=== PATIENT | male | born 1970 | race Caucasian/White ===

== ENCOUNTER 2016-08-29 02:05 | Emergency (ER) | payer OTHER ==
[~2016-08-29] VITALS: Ht 177.8 cm; Wt 120.2 kg
[~2016-08-29 02:05] MED LIST: CLEOCIN HCL300 MG PO; HYZAAR 100-251 EACH PO; TRAMADOL50 MG PO; ZOFRAN 4 MG TABL4 MG PO
--- NOTE | 2016-08-29 02:17 | ED GENERAL ADULT ---
History of Present Illness General Chief Complaint: Abdominal Pain/Flank Pain Stated Complaint: LEFT SIDE ABD PAIN Source: patient Exam Limitations: no limitations Triage Nurses Notes Reviewed? yes Onset: Last week Duration: day(s): Timing: multiple episodes today Severity: severe, 7-8/10 Severity Numbers: 7 Modifying Factors: Improves With: rest. Worsens With: movement. Associated Symptoms: NO ASSOCIATED SYMPTOMS HPI: Patient is a 46-year-old male who came to the ED due to several days of left upper quadrant and left lower quadrant abdominal pain that started at on and Monday last week, pain has been constant and severe 7-8 out of 10, progressively worsened, sometimes sharp and sometimes dull in nature, not associated with changes in the stool, nausea vomiting, fever or chills, or loss of appetite. Patient denies dysuria or changes in the urine. Pain hasn't been relieved by Aleve, aspirin, Pepto-Bismol, and has been worsened with changing position. Patient has a history of diverticulitis in the past associated with fever and nausea vomiting. (GUILLE COATES,[facility]) Vital Signs & Intake/Output Vital Signs & Intake/Output Vital Signs Date Time Temp Pulse Resp B/P Pulse O2 O2 Flow FiO2 Ox Delivery Rate 08/29 0419 88 20 122/78 100 08/29 0217 98.1 76 18 127/79 98 Room Air Allergies Coded Allergies: bee pollen (Severe, ANAPHYLAXIS 08/29/16) Reconcile Medications Ciprofloxacin HCl (Cipro) 500 MG TABLET 1 TAB PO BID DIVERTICULITIS LOSARTAN/HYDROCHLOROTHIAZIDE (Hyzaar 100-25 Tablet) 1 EACH TABLET 1 TAB PO DAILY BP (Reported) Metronidazole (Flagyl) 500 MG TABLET 1 TAB PO 4 TIMES/DAY DIVERTICULITIS Oxycodone HCl/Acetaminophen (Percocet 5-325 MG Tablet) 5 MG-325 MG TABLET 1 TAB PO 4XDP PRN PAIN TEN...[id number] (ZHANE COATES,BLAINE Bran) Past History Travel History Traveled to [place] past 21 day No Medical History Any Pertinent Medical History? see below for history Neurological: NONE EENT: NONE Cardiovascular: hypertension Respiratory: NONE Gastrointestinal: diverticulitis Hepatic: NONE Renal: NONE Musculoskeletal: NONE Psychiatric: NONE Endocrine: NONE Blood Disorders: NONE Cancer(s): NONE Surgical History Surgical History: carpal tunnel surgery, shoulder surgery Psychosocial History What is your primary language Danish Tobacco Use: Current Not Daily ETOH Use: occasional use Illicit Drug Use: denies illicit drug use Family History Family History, If Any: FATHER FH: diabetes mellitus Hx Contributory? No (CHACE HAN MD) Review of Systems Review of Systems Constitutional: Denies: chills, fever, malaise, weakness. EENTM: Denies: visual changes, hearing changes. Respiratory: Denies: cough, short of breath. Cardiovascular: Denies: chest pain, edema, palpitations. GI: Reports: abdominal pain, bloating. Denies: diarrhea, distention, nausea, changes in stool, vomiting. Genitourinary: Denies: discharge, dysuria, frequency, hematuria, hesitation, nocturia. Musculoskeletal: Denies: back pain, joint pain, joint swelling. Skin: Denies: change in skin color, rash. Neurological/Psychological: Denies: headache, weakness. Hematologic/Endocrine: Denies: bruising, bleeding. (CHACE HAN MD) Review of Systems Constitutional: Reports: no symptoms. EENTM: Reports: no symptoms. Respiratory: Reports: no symptoms. Cardiovascular: Reports: no symptoms. GI: Reports: no symptoms. Genitourinary: Reports: no symptoms. Musculoskeletal: Reports: no symptoms. Skin: Reports: no symptoms. Neurological/Psychological: Reports: no symptoms. Hematologic/Endocrine: Reports: no symptoms. Immunologic/Allergic: Reports: no symptoms. All Other Systems: Reviewed and Negative (ZHANE COATES,BLAINE Bran) Physical Exam Physical Exam General Appearance: well developed/nourished, no apparent distress, alert, awake , mild distress Head: atraumatic, normal appearance Eyes: Bilateral: normal appearance, PERRL, EOMI. Ears, Nose, Throat: normal pharynx, normal ENT inspection, hearing grossly normal Neck: normal inspection, supple, full range of motion Respiratory: normal breath sounds, chest non-tender, no respiratory distress Cardiovascular: regular rate/rhythm Peripheral Pulses: 2+ radial (R), 2+ radial (L) Gastrointestinal: tenderness on the hypogastric, left lower quadrant, and to a lesser extent in the left upper quadrant, epigastric right upper quadrant areas. rebound tenderness present. Back: normal inspection, normal range of motion, no vertebral tenderness Extremities: normal inspection, normal capillary refill, normal range of motion, no edema Neurologic/Psych: no motor/sensory deficits, awake, alert, oriented x 3, normal gait Skin: intact Core Measures ACS in differential dx? No CVA/TIA Diagnosis: No Severe Sepsis Present: No Septic Shock Present: No (CHACE HAN MD) Progress Differential Diagnoses I considered the following diagnoses in my evaluation of the patient: [Acute diverticulitis, gastritis, pancreatitis, alcohol induced hepatitis] Initial ED EKG: none (CHACE HAN MD) Differential Diagnoses I considered the following diagnoses in my evaluation of the patient: as above Plan of Care: Orders Procedure Date/time Status URINALYSIS 08/29 207 Complete LIPASE 08/29 207 Complete HEPATIC FUNCTION PANEL 08/29 207 Complete CBC WITHOUT DIFFERENTIAL 08/29 207 Complete BASIC METABOLIC PANEL 08/29 207 Complete AMYLASE 08/29 207 Complete Laboratory Tests 08/29/16 0235: Anion Gap 8, Estimated GFR > 60, BUN/Creatinine Ratio 18.8, Glucose 120 H, Calcium 9.2, Total Bilirubin 0.8, Direct Bilirubin 0.5 H, AST 24, ALT 49, Alkaline Phosphatase 49, Total Protein 6.8, Albumin 4.1, Amylase 35, Lipase 63, CBC w Diff NO MAN DIFF REQ, RBC 4.67 L, MCV 92.1, MCH 31.3 H, RDW 12.5, MPV 11.4 H, Gran % 70.9, Lymphocytes % 19.0 L, Monocytes % 8.5, Eosinophils % 1.0, Basophils % 0.6, Absolute Granulocytes 7.4 H, Absolute Lymphocytes 2.0, Absolute Monocytes 0.9 H, Absolute Eosinophils 0.1, Absolute Basophils 0.1, PUBS MCHC 34.0 08/29/16 0213: Urine Color YEL, Urine Clarity CLEAR, Urine pH 6.0, Ur Specific [place] >= 1.030 , Urine Protein NEG, Urine Ketones NEG, Urine Nitrite NEG, Urine Bilirubin NEG, Urine Urobilinogen 0.2, Ur Leukocyte Esterase NEG, Ur Microscopic SEDIMENT EXAMINED, Urine RBC 1-3, Urine WBC RARE, Urine Hemoglobin TRACE-INTACT H, Urine Glucose NEG Diagnostic Imaging: Viewed by Me: CT Scan. Discussed w/RAD: CT Scan. Radiology Impression: abd/pelvic ct... sigmoid diverticulitis Comments: PATIENT: PADMAJA BOLAÑOS PRESENT AGE: 46 PATIENT ACCOUNT NO: [id number] : 72 LOCATION: [facility] ORDERING PHYSICIAN: BLAINE PHELAN MD SERVICE DATE: 08/29/16 EXAM TYPE: CAT - CT ABD & PELVIS W/O IV CONTRAS EXAMINATION: CT ABDOMEN AND PELVIS WITHOUT CONTRAST CLINICAL INFORMATION: Abdominal pain. Left lower quadrant pain. COMPARISON: 08/05/2014. TECHNIQUE: Contiguous axial thin section helical images of the abdomen and pelvis were performed without oral or IV contrast. The data set was reformatted in the coronal and sagittal planes and reviewed on an independent workstation. DLP: 1283 mGy-cm. FINDINGS: The visualized lung bases are clear. The visualized portions of the heart are unremarkable. The liver is of normal size and attenuation without focal lesions nor intrahepatic biliary ductal dilation. A normal gallbladder is identified. There is no wall thickening or discernible pericholecystic fluid. The spleen, pancreas, adrenal glands are unremarkable. Both kidneys are of normal size and attenuation without hydronephrosis or nephrolithiasis. There is no abdominal free fluid. There is neither mesenteric nor retroperitoneal lymphadenopathy. There is descending colonic and sigmoid diverticulosis with adjacent fat stranding and wall thickening without drainable fluid collections. There is no pelvic free fluid. The urinary bladder is unremarkable. There is neither pelvic nor inguinal lymphadenopathy. Bone windows: Neither sclerotic nor lytic bone lesions are identified. There are bilateral L4 pars defects with grade 1 anterolisthesis of L4 in relation to L5. There is moderate disc height loss at L4/L5. IMPRESSION: Sigmoid diverticulosis and diverticulitis without drainable fluid collections. DICTATED BY: ARTHUR QUILES MD DATE/TIME DICTATED:08/29/16343 MANAGER CLINICAL PHARMACY:DONG DATE/TIME TRANSCRIBED:08/29/16343 CONFIDENTIAL, DO NOT COPY WITHOUT APPROPRIATE AUTHORIZATION. <Electronically signed in Other Vendor System> SIGNED BY: ARTHUR QUILES MD 08/29/16 0350 (ZHANE COATES,BLAINE Bran) Departure Departure Condition: Stable Referrals: MIRIAM ROBLES MD (PCP/Family) Departure Forms: Customer Survey General Discharge Information (GUILLE COATES,[facility]) Departure Disposition: HOME OR SELF CARE Clinical Impression Primary Impression: Diverticulitis Secondary Impressions: Abdominal pain Prescriptions: Current Visit Scripts Ciprofloxacin HCl (Cipro) 1 TAB PO BID #20 TAB Metronidazole (Flagyl) 1 TAB PO 4 TIMES/DAY #40 TAB Oxycodone HCl/Acetaminophen (Percocet 5-325 MG Tablet) 1 TAB PO 4XDP PRN PAIN #10 TAB TEN...[id number] Comments 08/29/16, 4:10am.... pt with stable labs, mild sigmoid diverticulitis... pt safe for discharge... pt given ceftriaxone and oral flagyl... home with cipro/flagyl and referred to GI. Resident Co-Sign Statement Statement: ED Attending supervision documentation- [x] I saw and evaluated the patient. I have also reviewed all the pertinent lab results and diagnostic results. I agree with the findings and the plan of care as documented in the Resident's documentation. mild tenderness at left lower quadrant.... labs/ct scan reviewed... discussed at length with patient. [] I have reviewed the ED Record and agree with the Resident's documentation. [] Additions or exceptions (if any) to the Resident's note and plan are summarized below: [] (ZHANE COATES,BLAINE Bran) Critical Care Note Critical Care Note Critical Care Time: non-applicable (ZHANE COATES,BLAINE Bran)
[2016-08-29 02:50] LABS: ABSOLUTE BASOPHIL COUNT 0.1 /CUMM (0.0-0.2); ABSOLUTE EOSINOPHIL COUNT 0.1 /CUMM (0.0-0.7); ABSOLUTE GRANULOCYTE CT 7.4 /CUMM (1.4-6.5); ABSOLUTE MONOCYTE COUNT 0.9 /CUMM (0.10-0.60); BASOPHIL % 0.6 % (0.0-2.0); GRANULOCYTE % 70.9 % (42.2-75.2); MEAN CORPUSCULAR HGB 31.3 PG (27.0-31.0); MEAN CORPUSCULAR VOLUME 92.1 FL (80.0-94.0); MEAN PLATELET VOLUME 11.4 FL (7.4-10.4); PLATELET COUNT 175 /CUMM (130-400); RBC DISTRIBUTION WIDTH 12.5 % (11.5-14.5); RED BLOOD CELL CT 4.67 /CUMM (4.70-6.10); WHITE BLOOD CELL COUNT 10.5 /CUMM (4.8-10.8)
--- NOTE | 2016-08-29 03:50 | CT SCAN REPORT ---
EXAMINATION: CT ABDOMEN AND PELVIS WITHOUT CONTRAST CLINICAL INFORMATION: Abdominal pain. Left lower quadrant pain. COMPARISON: 08/05/2014. TECHNIQUE: Contiguous axial thin section helical images of the abdomen and pelvis were performed without oral or IV contrast. The data set was reformatted in the coronal and sagittal planes and reviewed on an independent workstation. DLP: 1283 mGy-cm. FINDINGS: The visualized lung bases are clear. The visualized portions of the heart are unremarkable. The liver is of normal size and attenuation without focal lesions nor intrahepatic biliary ductal dilation. A normal gallbladder is identified. There is no wall thickening or discernible pericholecystic fluid. The spleen, pancreas, adrenal glands are unremarkable. Both kidneys are of normal size and attenuation without hydronephrosis or nephrolithiasis. There is no abdominal free fluid. There is neither mesenteric nor retroperitoneal lymphadenopathy. There is descending colonic and sigmoid diverticulosis with adjacent fat stranding and wall thickening without drainable fluid collections. There is no pelvic free fluid. The urinary bladder is unremarkable. There is neither pelvic nor inguinal lymphadenopathy. Bone windows: Neither sclerotic nor lytic bone lesions are identified. There are bilateral L4 pars defects with grade 1 anterolisthesis of L4 in relation to L5. There is moderate disc height loss at L4/L5. IMPRESSION: Sigmoid diverticulosis and diverticulitis without drainable fluid collections.
[2016-08-29] MEDS ORDERED: CIPRO500 M1 PO (04:02)
[2016-08-29] MEDS ORDERED: FLAGYL500 MG PO (04:02)
[2016-08-29] MEDS ORDERED: PERCOCET 5-3251 EACH PO (04:02)
[2016-08-29 04:19] VITALS: BP 122/78
== END 2016-08-29 04:19 ==
LOC: ERH 02:05
PROVIDERS: Pediatrics
DX: K57.92 Diverticulitis of intestine, part unspecified, without perforation or abscess without bleeding (principal)
CPT/HCPCS: 74176; 81001; 96374; 96375; J0696; J1885

== ENCOUNTER 2016-09-22 12:00 | Emergency (ER) | payer OTHER ==
[~2016-09-22] VITALS: Ht 177.8 cm; Wt 117.9 kg
[~2016-09-22 12:00] MED LIST changes: +CIPRO500 M1 PO; +FLAGYL500 MG PO; +PERCOCET 5-3251 EACH PO
[2016-09-22 12:22] LABS: ABSOLUTE BASOPHIL COUNT 0.1 /CUMM (0.0-0.2); ABSOLUTE EOSINOPHIL COUNT 0.1 /CUMM (0.0-0.7); ABSOLUTE GRANULOCYTE CT 8.8 /CUMM (1.4-6.5); ABSOLUTE LYMPH COUNT 1.9 /CUMM (1.2-3.4); ABSOLUTE MONOCYTE COUNT 1.1 /CUMM (0.10-0.60); BASOPHIL % 0.4 % (0.0-2.0); EOSINOPHIL % 0.6 % (0-5); GRANULOCYTE % 74.1 % (42.2-75.2); HEMATOCRIT 42.7 % (42-52); MEAN CORPUSCULAR HGB 31.5 PG (27.0-31.0); MEAN CORPUSCULAR HGB CONC 34.3 G/DL (33.0-37.0); MEAN CORPUSCULAR VOLUME 91.8 FL (80.0-94.0); PLATELET COUNT 177 /CUMM (130-400); RED BLOOD CELL CT 4.65 /CUMM (4.70-6.10); WHITE BLOOD CELL COUNT 11.9 /CUMM (4.8-10.8)
--- NOTE | 2016-09-22 12:31 | ED GI/GU/ABDOMINAL COMPLAINT ---
History of Present Illness General Chief Complaint: Abdominal Pain/Flank Pain Stated Complaint: ABD PAIN DIVERTICULITIS Source: patient, old records Exam Limitations: no limitations Allergies Coded Allergies: bee pollen (Severe, ANAPHYLAXIS 08/29/16) Reconcile Medications Ciprofloxacin HCl (Cipro) 500 MG TABLET 1 TAB PO BID infection Losartan/Hydrochlorothiazide (Hyzaar 100-25 Tablet) 100 MG-25 MG TABLET 1 TAB PO DAILY HEART (Reported) Ondansetron (Zofran Odt) 4 MG TAB.RAPDIS 1 TAB SL TID PRN nausea Oxycodone HCl/Acetaminophen (Percocet 5-325 MG Tablet) 5 MG-325 MG TABLET 1 TAB PO Q6H PRN PAIN Triage Note: PT STATES THAT HE HAS HISTORY OF DIVERTICULITIS AND WAS TREATED WITH CIPRO AND FLAGYL, STATES THAT PAIN HAS ARETURNED SINCE MONDAY Triage Nurses Notes Reviewed? yes HPI: Patient is a 46-year-old male presents complaining of severe left lower quadrant abdominal pain. Patient reports that pain initially began approximately 4 weeks ago. Patient was seen in the emergency department and diagnosed with diverticulitis. Patient was placed on Cipro and Flagyl. Patient took the antibiotics for 10 days with moderate improvement but symptoms did not resolve completely. Yesterday pain significantly worsened. Patient called his primary doctor, Dr. Goetz, and Dr. Goetz called in a prescription for Flagyl which patient has taken since yesterday with no improvement. Pain is severe, worsens with palpation. Positive associated nausea. Patient denies fevers, vomiting, diarrhea, hematochezia. (ALISHA AGUIRRE) Vital Signs & Intake/Output Vital Signs & Intake/Output Vital Signs Date Time Temp Pulse Resp B/P Pulse O2 O2 Flow FiO2 Ox Delivery Rate 09/22 1359 97.9 82 18 137/69 97 Room Air 09/22 1302 98 Room Air 09/22 1203 98.8 94 18 147/87 98 Room Air Past History Travel History Traveled to [place] past 21 day No Medical History Any Pertinent Medical History? see below for history Neurological: NONE EENT: NONE Cardiovascular: hypertension Respiratory: NONE Gastrointestinal: diverticulitis Hepatic: NONE Renal: NONE Musculoskeletal: NONE Psychiatric: NONE Endocrine: NONE Blood Disorders: NONE Cancer(s): NONE Surgical History Surgical History: carpal tunnel surgery, shoulder surgery Psychosocial History What is your primary language Tajik Tobacco Use: Never used ETOH Use: denies use Illicit Drug Use: denies illicit drug use Family History Family History, If Any: FATHER FH: diabetes mellitus Hx Contributory? No (ALISHA AGUIRRE) Review of Systems Review of Systems Constitutional: Denies: chills, fever. EENTM: Reports: no symptoms. Respiratory: Denies: cough, short of breath. Cardiovascular: Denies: chest pain. GI: Reports: see HPI. Genitourinary: Reports: no symptoms. Musculoskeletal: Reports: no symptoms. Skin: Reports: no symptoms. Neurological/Psychological: Reports: no symptoms. Hematologic/Endocrine: Reports: no symptoms. Immunologic/Allergic: Reports: no symptoms. (ALISHA AGUIRRE) Physical Exam Physical Exam General Appearance: well developed/nourished, alert, awake Head: atraumatic, normal appearance Eyes: Bilateral: normal appearance. Ears, Nose, Throat, Mouth: hearing grossly normal, moist mucous membrane Neck: normal inspection, supple, full range of motion Respiratory: normal breath sounds, no respiratory distress, lungs clear Cardiovascular: regular rate/rhythm Gastrointestinal: normal bowel sounds, soft, LLQ tenderness with voluntary guarding. Back: normal inspection, normal range of motion Extremities: normal range of motion Neurologic/Psych: no motor/sensory deficits, awake, alert, oriented x 3, normal gait, normal mood/affect Skin: intact, normal color, warm/dry Core Measures ACS in differential dx? No Severe Sepsis Present: No Septic Shock Present: No (ALISHA AGUIRRE) Progress Differential Diagnosis: diverticulitis, intra-abdominal abscess, bowel perforation, sepsis Diagnostic Imaging: Viewed by Me: CT Scan. Discussed w/RAD: CT Scan. Radiology Impression: PATIENT: PADMAJA BOLAÑOS PRESENT AGE: 46 PATIENT ACCOUNT NO: [id number] : 72 LOCATION: [facility] ORDERING PHYSICIAN: ALISHA VICKERS SERVICE DATE: 09/22/16 EXAM TYPE: CAT - CT ABD & PELVIS W IV CONTRAST EXAMINATION: CT ABDOMEN AND PELVIS WITH CONTRAST CLINICAL INFORMATION: Left lower quadrant abdominal tenderness and guarding. Evaluate for diverticulitis, abscess and/or perforation. COMPARISON: CT of abdomen pelvis from 08/29/2016. TECHNIQUE: Multidetector volumetric imaging was performed of the abdomen and pelvis after the IV administration of 95 mL of Optiray 320 intravenous contrast. Sagittal and coronal reformatted images were obtained on the technologist's workstation. DLP: 1115 mGy-cm FINDINGS: LUNG BASES: The visualized lung bases are unremarkable. LIVER, GALLBLADDER, AND BILIARY TREE: Liver has normal size and contour. 1.8 cm hemangioma in the right hepatic lobe is stable in size compared to 08/09/2007 ( image 16, series 2). No suspicious hepatic lesion or intrahepatic bile duct dilatation. Gallbladder is physiologically distended and without evidence of cholelithiasis or pericholecystic inflammatory change. PANCREAS: Unremarkable. SPLEEN: No focal splenic lesion. Spleen measures 13.3 cm craniocaudal, not appreciably changed in size compared to 08/09/2007. Splenic vein is patent. ADRENAL GLANDS: Unremarkable. KIDNEYS AND URETERS: Kidneys have normal size, cortical thickness and attenuation. No nephrolithiasis, hydronephrosis or perinephric edema. The ureters are unremarkable. BLADDER: Unremarkable. GASTROINTESTINAL TRACT: Stomach is normal. Bowel loops are normal in caliber. Appendix is normal. Again noted are multiple diverticula of the right and left colon. There is persistent fat stranding around a diverticulum of the distal descending colon. This remains similar in appearance compared to 08/29/2016. No evidence of bowel perforation or abscess formation. ABDOMINAL WALL: No acute findings. LYMPH NODES: No pathologic sized lymph nodes within the abdomen or pelvis. VASCULAR: Mild atherosclerotic calcification of the abdominal aorta without aneurysm. PELVIC VISCERA: Prostate gland and seminal vesicles are unremarkable. No pelvic free fluid. OSSEOUS STRUCTURES: L4-L5 disc degeneration as manifest by moderate disc space narrowing, vacuum disc phenomenon, disc bulge and discogenic vertebral sclerosis. There are bilateral pars interarticularis defects of L4 with 0.6 cm of grade 1 anterolisthesis of L4 on L5. IMPRESSION: 1. Persistent diverticulitis of the distal descending colon. No interval development of bowel perforation or abscess. 2. Cavernous hemangioma (i.e., venous formation) within the right lobe of the liver is stable in size compared to 08/09/2007. DICTATED BY: TJ SPEARS MD DATE/TIME DICTATED:09/22/161312 UNDERWATER PHOTOGRAPHER:DONG DATE/TIME TRANSCRIBED:09/22/161312 CONFIDENTIAL, DO NOT COPY WITHOUT APPROPRIATE AUTHORIZATION. <Electronically signed in Other Vendor System> SIGNED BY: TJ SPEARS MD 09/22/16 1330 Initial ED EKG: none (ALISHA AGUIRRE) Plan of Care: Orders Procedure Date/time Status COMPREHENSIVE METABOLIC PANEL 09/22 1205 Complete CBC WITHOUT DIFFERENTIAL 09/22 1205 Complete Laboratory Tests 09/22/16 1207: Anion Gap 12, Estimated GFR > 60, BUN/Creatinine Ratio 18.8, Glucose 93, Calcium 9.2, Total Bilirubin 1.1, AST 27, ALT 51, Alkaline Phosphatase 50, Total Protein 7.1, Albumin 4.3, Globulin 2.8, Albumin/Globulin Ratio 1.5, CBC w Diff NO MAN DIFF REQ, RBC 4.65 L, MCV 91.8, MCH 31.5 H, RDW 13.0, MPV 11.0 H, Gran % 74.1 , Lymphocytes % 16.0 L, Monocytes % 8.9, Eosinophils % 0.6, Basophils % 0.4, Absolute Granulocytes 8.8 H, Absolute Lymphocytes 1.9, Absolute Monocytes 1.1 H, Absolute Eosinophils 0.1, Absolute Basophils 0.1, PUBS MCHC 34.3 09/22/2016 1:52:13 PM: Results discussed with patient. Patient reports improvement in nausea and pain after morphine and Zofran. Patient resting comfortably. Patient's primary doctor paged to discuss disposition. Discussed with Dr. Madsen. 09/22/2016 2:27:49 PM: Discussed with Dr. Goetz: He provided instructions for Flagyl to the patient yesterday, recommends providing prescription for pain control, antinausea medicine, Cipro for 14 day course and have follow-up in the office. (ALISHA AGUIRRE) Departure Departure Time of Disposition: 1418 Disposition: HOME OR SELF CARE Condition: Stable Clinical Impression Primary Impression: Acute diverticulitis Referrals: SARA COATES,MELLISSA GOETZ MD,MIRIAM (PCP/Family) Additional Instructions: Follow-up with your primary doctor either tomorrow or Monday for recheck and further evaluation. Call Dr. Barrera to try to get an earlier appointment than mid-September for further evaluation. Clear liquid diet for the next 24-48 hours then slowly advance your diet as tolerated. Return to the emergency department if you develop a fever of 100.4 or higher, vomiting, pain increasing, or worsening of symptoms. Departure Forms: Customer Survey General Discharge Information Prescriptions: Current Visit Scripts Ondansetron (Zofran Odt) 1 TAB SL TID PRN nausea #10 TAB Oxycodone HCl/Acetaminophen (Percocet 5-325 MG Tablet) 1 TAB PO Q6H PRN PAIN #10 TAB Ciprofloxacin HCl (Cipro) 1 TAB PO BID #28 TAB (ALISHA AGUIRRE) PA/SHIPPING AND RECEIVING Co-Sign Statement Statement: ED Attending supervision documentation- [] I saw and evaluated the patient. I have also reviewed all the pertinent lab results and diagnostic results. I agree with the findings and the plan of care as documented in the PA's/SHIPPING AND RECEIVING's documentation. [x] I have reviewed the ED Record and agree with the PA's/SHIPPING AND RECEIVING's documentation. [] Additions or exceptions (if any) to the PAs/SHIPPING AND RECEIVING's note and plan are summarized below: [] (MICHAELA COATES,CATHLEEN Andrade)
--- NOTE | 2016-09-22 13:30 | CT SCAN REPORT ---
EXAMINATION: CT ABDOMEN AND PELVIS WITH CONTRAST CLINICAL INFORMATION: Left lower quadrant abdominal tenderness and guarding. Evaluate for diverticulitis, abscess and/or perforation. COMPARISON: CT of abdomen pelvis from 08/29/2016. TECHNIQUE: Multidetector volumetric imaging was performed of the abdomen and pelvis after the IV administration of 95 mL of Optiray 320 intravenous contrast. Sagittal and coronal reformatted images were obtained on the technologist's workstation. DLP: 1115 mGy-cm FINDINGS: LUNG BASES: The visualized lung bases are unremarkable. LIVER, GALLBLADDER, AND BILIARY TREE: Liver has normal size and contour. 1.8 cm hemangioma in the right hepatic lobe is stable in size compared to 08/09/2007 (image 16, series 2). No suspicious hepatic lesion or intrahepatic bile duct dilatation. Gallbladder is physiologically distended and without evidence of cholelithiasis or pericholecystic inflammatory change. PANCREAS: Unremarkable. SPLEEN: No focal splenic lesion. Spleen measures 13.3 cm craniocaudal, not appreciably changed in size compared to 08/09/2007. Splenic vein is patent. ADRENAL GLANDS: Unremarkable. KIDNEYS AND URETERS: Kidneys have normal size, cortical thickness and attenuation. No nephrolithiasis, hydronephrosis or perinephric edema. The ureters are unremarkable. BLADDER: Unremarkable. GASTROINTESTINAL TRACT: Stomach is normal. Bowel loops are normal in caliber. Appendix is normal. Again noted are multiple diverticula of the right and left colon. There is persistent fat stranding around a diverticulum of the distal descending colon. This remains similar in appearance compared to 08/29/2016. No evidence of bowel perforation or abscess formation. ABDOMINAL WALL: No acute findings. LYMPH NODES: No pathologic sized lymph nodes within the abdomen or pelvis. VASCULAR: Mild atherosclerotic calcification of the abdominal aorta without aneurysm. PELVIC VISCERA: Prostate gland and seminal vesicles are unremarkable. No pelvic free fluid. OSSEOUS STRUCTURES: L4-L5 disc degeneration as manifest by moderate disc space narrowing, vacuum disc phenomenon, disc bulge and discogenic vertebral sclerosis. There are bilateral pars interarticularis defects of L4 with 0.6 cm of grade 1 anterolisthesis of L4 on L5. IMPRESSION: 1. Persistent diverticulitis of the distal descending colon. No interval development of bowel perforation or abscess. 2. Cavernous hemangioma (i.e., venous formation) within the right lobe of the liver is stable in size compared to 08/09/2007.
[2016-09-22 13:59] VITALS: BP 137/69
[2016-09-22] MEDS ORDERED: CIPRO500 M1 PO (14:27)
[2016-09-22] MEDS ORDERED: PERCOCET 5-3251 EACH PO (14:27)
[2016-09-22] MEDS ORDERED: ZOFRAN ODT4 M1 SL (14:27)
== END 2016-09-22 14:41 ==
LOC: ERH 12:00
PROVIDERS: Emergency Medicine
DX: K57.92 Diverticulitis of intestine, part unspecified, without perforation or abscess without bleeding (principal)
CPT/HCPCS: 74177; 96374; 96375; J2405

== ENCOUNTER 2016-09-30 03:54 | Emergency (ER) | payer OTHER ==
[~2016-09-30 03:54] MED LIST changes: +ZOFRAN ODT4 M1 SL
--- NOTE | 2016-09-30 04:39 | ED GI/GU/ABDOMINAL COMPLAINT ---
History of Present Illness General Chief Complaint: Abdominal Pain/Flank Pain Stated Complaint: LEFT SIDED RIB,FLANK/ABD PAIN HX DIVERTICULITIS Source: patient, old records Exam Limitations: no limitations Vital Signs & Intake/Output Vital Signs & Intake/Output Vital Signs Date Time Temp Pulse Resp B/P Pulse O2 O2 Flow FiO2 Ox Delivery Rate 09/30 0551 97.0 70 18 120/67 98 Room Air 09/30 0422 Room Air 09/30 0401 97.9 81 20 134/87 Allergies Coded Allergies: bee pollen (Severe, ANAPHYLAXIS 08/29/16) Reconcile Medications Ciprofloxacin HCl (Cipro) 500 MG TABLET 1 TAB PO BID infection Famotidine (Pepcid) 20 MG TABLET 1 TAB PO BID gastritis Hyoscyamine Sulfate (Levsin-Sl) 0.125 MG TAB.SUBL 1-2 TAB SL Q4P PRN abdominal pain Losartan/Hydrochlorothiazide (Hyzaar 100-25 Tablet) 100 MG-25 MG TABLET 1 TAB PO DAILY HEART (Reported) Ondansetron (Zofran Odt) 4 MG TAB.RAPDIS 1 TAB SL TID PRN nausea Oxycodone HCl/Acetaminophen (Percocet 5-325 MG Tablet) 5 MG-325 MG TABLET 1 TAB PO Q6H PRN PAIN Triage Note: PER PT ABD PAIN X 3-4 DAYS. SEEN X 2 IN LAST COUPLE WEEKS DX WITH DIVERTIC, THIS PAIN IS DIFFERENT, DULL AND THROBBING DENIES NVD NO FEVERS, ON CIPRO PRESCRIBED Triage Nurses Notes Reviewed? yes Onset: 5 days Duration: day(s):, constant, continues in ED, getting worse Timing: recent history Quality/Severity: aching, moderate Location: left upper quadrant Radiation: no radiation Activities at Onset: eating Prior Abdominal Problems: similar symptoms Past Sexual History: Unobtainable at this time Modifying Factors: Worsens With: palpation. Associated Symptoms: abdominal pain HPI: 1 month prior to admission patient was diagnosed with diverticulitis prescribed Cipro. 2 weeks prior to admission he had recurrent left lower quadrant pain with recurrent LLQ pain with contrast demonstrating continued diverticulitis. He was prescribed Cipro and Flagyl with improvement in pain. 5 days prior to admission after eating a homemade muffin he developed a different quality of pain in the left upper quadrant moderate to severe constant worse with palpation associated with rumbling bowel sounds. He denies fever chills nausea vomiting diarrhea chest pain cough shortness of breath headache dysuria rash bleeding. He also complains of decreased urinary stream and frequency. Past History Travel History Traveled to [place] past 21 day No Medical History Any Pertinent Medical History? see below for history Neurological: NONE EENT: NONE Cardiovascular: hypertension Respiratory: NONE Gastrointestinal: diverticulitis Hepatic: NONE Renal: NONE Musculoskeletal: NONE Psychiatric: NONE Endocrine: NONE Blood Disorders: NONE Cancer(s): NONE Surgical History Surgical History: carpal tunnel surgery, shoulder surgery Psychosocial History What is your primary language Albanian Tobacco Use: Never used Family History Family History, If Any: FATHER FH: diabetes mellitus Hx Contributory? No Review of Systems Review of Systems Constitutional: Reports: no symptoms. EENTM: Reports: no symptoms. Respiratory: Reports: no symptoms. Cardiovascular: Reports: no symptoms. GI: Reports: see HPI, abdominal pain. Genitourinary: Reports: see HPI, frequency. Musculoskeletal: Reports: no symptoms. Skin: Reports: no symptoms. Neurological/Psychological: Reports: no symptoms. Hematologic/Endocrine: Reports: no symptoms. Immunologic/Allergic: Reports: no symptoms. All Other Systems: Reviewed and Negative Physical Exam Physical Exam General Appearance: well developed/nourished, alert, awake, anxious, mild distress, obese Head: atraumatic, normal appearance Eyes: Bilateral: normal appearance, PERRL, EOMI, normal inspection. Ears, Nose, Throat, Mouth: hearing grossly normal, moist mucous membrane Neck: normal inspection, supple, full range of motion, normal alignment, no midline tenderness Respiratory: normal breath sounds, chest non-tender, no respiratory distress, quiet respiration, lungs clear Cardiovascular: regular rate/rhythm, normal peripheral pulses, norml femoral pulses equa Peripheral Pulses: 4+ carotid (R), 4+ carotid (L) Gastrointestinal: soft, non-tender, no organomegaly, abnormal bowel sounds Male Genitals: normal genitalia Back: normal inspection, normal range of motion Extremities: normal range of motion, no ligament instability Neurologic/Psych: no motor/sensory deficits, awake, alert, oriented x 3, normal gait, normal mood/affect, 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 No Severe Sepsis Present: No Septic Shock Present: No Progress Differential Diagnosis: biliary colic, diverticulitis, gastritis, pancreatitis, PUD/GERD Plan of Care: Orders Procedure Date/time Status Add-on Test (ER Only) 09/30 050 Active URINALYSIS 09/30 421 Complete HIGH SENSITIVITY CRP 09/30 421 Complete COMPREHENSIVE METABOLIC PANEL 09/30 421 Complete CBC WITHOUT DIFFERENTIAL 09/30 421 Complete LIPASE 09/30 42 Complete AMYLASE 09/30 42 Complete Laboratory Tests 09/30/16 0430: CBC w Diff NO MAN DIFF REQ, RBC 4.55 L, MCV 92.7, MCH 30.8, RDW 13.3, MPV 11.2 H, Gran % 64.0, Lymphocytes % 21.6, Monocytes % 11.7 H, Eosinophils % 2.0, Basophils % 0.7, Absolute Granulocytes 5.2, Absolute Lymphocytes 1.8, Absolute Monocytes 1.0 H, Absolute Eosinophils 0.2, Absolute Basophils 0.1, PUBS MCHC 33.2 09/30/16 042: Urine Color YEL, Urine Clarity CLEAR, Urine pH 6.0, Ur Specific [place] 1.015, Urine Protein NEG, Urine Ketones NEG, Urine Nitrite NEG, Urine Bilirubin NEG, Urine Urobilinogen 0.2, Ur Leukocyte Esterase NEG, Ur Microscopic EXAM NOT REQUIRED, Urine Hemoglobin NEG, Urine Glucose NEG 09/30/16 004: Anion Gap 8, Estimated GFR > 60, BUN/Creatinine Ratio 23.3, Glucose 113 H, Calcium 9.2, Total Bilirubin 0.4, AST 39, ALT 71, Alkaline Phosphatase 40, C- React Prot High Sens 1.9, Total Protein 6.1 L, Albumin 3.6, Globulin 2.5, Albumin/Globulin Ratio 1.4, Amylase 41, Lipase 87 Initial ED EKG: none Departure Departure Time of Disposition: 629 Disposition: HOME OR SELF CARE Condition: Stable Clinical Impression Primary Impression: Gastritis and duodenitis Secondary Impressions: Drug side effects Referrals: SARA COATES,MELLISSA ROBLES MD,MIRIAM (PCP/Family) Departure Forms: Customer Survey General Discharge Information RELEASE- WORK Prescriptions: Current Visit Scripts Hyoscyamine Sulfate (Levsin-Sl) 1-2 TAB SL Q4P PRN abdominal pain #60 TAB Famotidine (Pepcid) 1 TAB PO BID #60 TAB Ref 1
[2016-09-30 04:51] LABS: ABSOLUTE BASOPHIL COUNT 0.1 /CUMM (0.0-0.2); ABSOLUTE EOSINOPHIL COUNT 0.2 /CUMM (0.0-0.7); ABSOLUTE GRANULOCYTE CT 5.2 /CUMM (1.4-6.5); ABSOLUTE LYMPH COUNT 1.8 /CUMM (1.2-3.4); BASOPHIL % 0.7 % (0.0-2.0); HEMATOCRIT 42.1 % (42-52); MEAN CORPUSCULAR HGB 30.8 PG (27.0-31.0); MEAN CORPUSCULAR HGB CONC 33.2 G/DL (33.0-37.0); MEAN CORPUSCULAR VOLUME 92.7 FL (80.0-94.0); MEAN PLATELET VOLUME 11.2 FL (7.4-10.4); PLATELET COUNT 178 /CUMM (130-400); RBC DISTRIBUTION WIDTH 13.3 % (11.5-14.5); RED BLOOD CELL CT 4.55 /CUMM (4.70-6.10); WHITE BLOOD CELL COUNT 8.2 /CUMM (4.8-10.8)
[2016-09-30 05:51] VITALS: BP 120/67
[2016-09-30] MEDS ORDERED: LEVSIN-SL0.125 MG SL (06:00)
[2016-09-30] MEDS ORDERED: PEPCID20 M1 PO (06:00)
== END 2016-09-30 06:50 ==
LOC: ERH 03:54
PROVIDERS: Emergency Medicine
DX: K29.70 Gastritis, unspecified, without bleeding (principal); K29.80 Duodenitis without bleeding; T36.8X5A Adverse effect of other systemic antibiotics, initial encounter; T37.3X5A Adverse effect of other antiprotozoal drugs, initial encounter
CPT/HCPCS: 81003; 96374; 96375; J1885; J2765